=== PATIENT | female | born 1975 | race Two or more races ===

== ENCOUNTER 2016-09-20 22:42 | Emergency (ER) | payer OTHER ==
--- NOTE | ~2016-09-20 | CR58 ---
[facility] A Service of [facility] RADIOLOGY TEXT RESULTS PATIENT: LAWRENCE HERRERA LOCATION: [facility] : 75 UNIT #: [id number] AGE: [address]: DAVID BOYER APRN SEX: F ORDER DR: [id number] [facility] [address] [place], [place] [address] [id number] E MR#: [id number] Acc #: [id number] NAME: LAWRENCE HERRERA : 1975 SEX: F STUDY DATE/TIME: 09/21/2016 04:43 UNIT: [facility] ROOM: STUDY DESCRIPTION: CR Cervical Spine 2 or 3 Views Attending Physician: David Boyer Aprn Ordering Physician: David Boyer Aprn Primary Care Physician: Primary Care Physician No MEDICAL IMAGING REPORT This report is preliminary unless electronic signature is present EXAM Cervical spine, 09/21 at 04:43. INDICATIONS Neck pain and left arm pain that started yesterday. No trauma. FINDINGS Five views of the cervical spine were obtained. No fracture or subluxation is seen. Vertebral body heights and disc spaces are normal. Prevertebral soft tissues are normal. IMPRESSION Negative cervical spine. Dictated by... Shamir Brown Jr., M.D. THIS IS AN ELECTRONICALLY VERIFIED REPORT Shamir Brown Jr., M.D. at 09/22/2016 9:22 PM MICHAELA/joy TD: 09/21/2016 09:01 JOB #: [id number] MEDICAL IMAGING REPORT Page 1 of 1 COPY
== END 2016-09-21 06:30 | disposition home or self-care (01) ==
LOC: CED 22:42
DX: M54.12 Radiculopathy, cervical region (principal); Z88.1 Allergy status to other antibiotic agents; Z98.890 Other specified postprocedural states
CPT/HCPCS: 72040; 99283